=== PATIENT | female | born 1995 | race African-American/Black ===

== ENCOUNTER 2017-03-04 20:22 | Emergency (ER) | payer MEDICAID ==
[~2017-03-04] VITALS: Ht 160 cm; Wt 59.0 kg
[2017-03-04 20:26] VITALS: BP 103/69
== END 2017-03-04 23:48 | disposition left against medical advice (07) ==
LOC: ER 21:10
DX: R51 Headache (principal); Z53.21 Procedure and treatment not carried out due to patient leaving prior to being seen by health care provider